=== PATIENT | female | born 1965 | race Caucasian/White ===

== ENCOUNTER 2024-09-27 05:59 | Day surgery (SDC) | payer OTHER, SELFPAY ==
[2024-09-22 14:09] VITALS: BMI 34.8
--- NOTE | 2024-09-24 07:17 | W.CON.GYNONC ---
Chief Complaint
-
endometrial cancer
History of Present Illness
59�year�old��woman�referred�to�us�by�Dr.�Calvin.�Newly�diagnosis�of�endometrial�cancer.�She�had�presented�with postmenopausal�bleeding.,�spotting�noted�back�in�2020,�no�workup�done,�one�week�of�menstrual�like�bleeding�in�Nov�2024.�
Pap�smear�dated�Luna�24,�2024�shows�atypical�squamous�cells�of�undetermined�significance,�high�risk�HPV�negative Ultrasound�of�pelvis�Luna�13�reveals�uterus�7.6�x�3.6�x�4.9�cm,�endometrial�echo�complex�is�thick�at�10�mm,�right�ovary�is
not�visualized,�left�ovary�is�1.7�cm.�In�addition�there�is�heterogeneous�echotexture�noted�and�a�distended�endocervical�canal�about�7 mm�in�thickness
Endometrial�biopsy�dated�Luna�24�shows�fragments�of�grade�1�endometrioid�adenocarcinoma,�mismatch�repair�proteins are�expressed.wild�type�p53.�
Past�medical�history�significant�for�allergic�rhinitis,�anxiety,�arthritis,�chronic�kidney�disease,�hypertension,�Lyme�disease�obesity otitis�media�prediabetes,�thyroid�nodule
Past�surgical�history�arthroscopy�of�knee,�C�section,�cholecystectomy,�tonsillectomy�and�tooth�extraction Family�history�significant�for�mother�with�cardiac�disease�including�atrial�fibrillation,�father�with�hypertension�hyperlipidemia�and
glaucoma,�maternal�grandmother�with�breast�cancer
Medications�include�Mucinex,�Cozaar,�Antivert,�Zoloft,�Desyrel
All:�Cefprozil,�Fluoxetine
Social�History Patient�denies�ever�using�tobacco. Social�use�of�alcohol. Denies�any�illicit�drug�use. Patient�has�not�had�any�occupational�exposure. Mother:�Atrial�Fibrillation,�Hypertension,�Heart�disease,�vision�loss,�Anxiety�disorder
Father:�Kidney�disorder,�Glaucoma,�hypertension,�hyperlipidemia,�vision�loss,�Colon�polyps Brother:�Allergies Maternal�Grand�mother:�Depression,�stroke,�Heart�disease,�breast�cancer,� Son:�auto�immune�disease Maternal�Aunt:�Thrombosis
Family:�Heart�attack,�Breast�cancer,�lungs�cancer�
Marital�Status:�Patient�is�
Medical History
Allergies
Allergies reflect when allergies were last updated in [employer].
No Known Allergies Allergy (Unverified 09/23/24 13:07)
Physical Exam
Physical Exam
External�normal�labia,�urethra,�anus.� Vagina:�Normal�mucosa.� Cervix:�normal�appearance,�no�discharge.� Uterus:�normal�size.� Adnexa:�No�pelvic�mass.� RVE:�no�masses�or�nodularity
General:�Well�developed,�well�nourished�patient.�In�no�acute�distress.
Neck:�No�thyromegaly.�No�cervical�lymphadenopathy.
Lungs:�Clear�to�auscultation.�Good�air�movement�bilaterally.
Cardiac:�Regular�rate.�Regular�rhythm.�No�murmurs�appreciated.
Right�Breast:�No�masses�or�dimpling.�No�nipple�discharge. Left�Breast:�No�masses�or�dimpling.�No�nipple�discharge. Abdomen:�Abdomen�is�soft.�Non�tender�to�palpation.�Non�distended.
Extremities:�No�edema.
Hematologic/Lymphatic:�No�palpable�lymphadenopathy.
Musculoskeletal:�Normal�range�of�motion.�Strength�and�Tone�are�normal.
Skin:Non�jaundiced.�No�petechia.�No�purpura.
Neurologic:�Speech�is�fluent.�Normal�gait�and�station.�Cranial�nerves�intact.
Impression / Plan
-
this�patient�has�a�new�diagnosis�of�grade�1�endometrioid�adenocarcinoma,�her�clinical�examination�appears�to�be�essentially normal.�Risk�factors�and�her�includes�obesity�and�hypertension.�We�discussed�the�general�presentation�of�this�disease�and
management.�I�am�recommending�labs�and�CT�scan�for�initial�investigation,�she�needs�primary�care�physician�to�provide�medical
clearance�and�EKG.�My�recommendation�for�treatment�is�robotic�assisted�total�laparoscopic�hysterectomy�bilateral�salpingooophorectomy�and�sentinel�lymph�node�mapping�and�identification�and�excision.�Risks�of�surgery�including�infection�bleeding�injur
y to�adjacent�organs�DVT�pulmonary�embolism�and�cardiovascular�complications�and�need�for�additional�treatments�were�discussed
and�reviewed.�She�understands�that�she�will�meet�with�me�2�weeks�after�surgery�to�discuss�final�pathology�and�risk�factors�for
recurrence�in�order�to�identify�best�plan�for�adjuvant�treatment.�We�also�discussed�lifestyle�modifications�that�may�lead�to�lesser chance�of�cardiovascular�disease�as�well�as�recurrence�of�endometrial�cancer.
[2024-09-27] VITALS (15 sets, daily range): BP systolic 96–163; BP diastolic 49–86; BMI 34.8
[2024-09-27] MEDS: HEPARIN 5000 UNITS SC (06:56)
[2024-09-27] MEDS: NORMOSOL-R/PLASMALYTE-A 1000 IV (06:57)
[2024-09-27] MEDS: LYRICA 150 MG PO (07:00)
[2024-09-27] MEDS: NEURONTIN 300 MG PO (07:01)
[2024-09-27] MEDS: CELEBREX 200 MG PO (07:01)
[2024-09-27] MEDS: TRANSDERM-SCOP 1 PATCH TRANSDERM (07:09)
--- NOTE | 2024-09-27 09:41 | OR.RPT ---
Operative Report
Operative Report
Date of procedure: September 27, 2024
Preoperative diagnosis: Grade 1 endometrioid adenocarcinoma of uterus
Postoperative diagnosis: Same plus extensive pelvic adhesions
Procedure:
Robotic assisted total laparoscopic hysterectomy, bilateral salpingo-oophorectomy, omental biopsy, extensive lysis of adhesions 25287
Injection of cervix, bilateral, with ICG dye for mapping and identification of sentinel lymph nodes 41800-80
Robotic assisted laparoscopic bilateral pelvic sentinel lymphadenectomy 50906-82
TAP Block
Surgeon: Geovanny Mata
Assist: SUKUMAR Beth
Anesthesia: General Endotracheal intubation
Complications: None
Estimated blood loss: 100 cc
Specimens: Uterus and cervix with bilateral tubes and ovaries, right and left external iliac sentinel lymph nodes, right obturator fossa sentinel lymph node, pelvic washings, omental biopsy
Procedure in detail: This patient was taken to the operating room for definitive management of endometrial cancer. Upon arrival to the operating room, she was placed in supine position. General anesthesia was administered, she was intubated
without any difficulty. Appropriate IVs were placed, bilateral arms were wrapped in foam and placed along the patient's side and protected across all joints. She was placed in dorsal lithotomy position using yellowfin stirrups. Patient was
prepped on the abdomen perineum and vagina. She was draped. Timeout procedure was carried out. She received antibiotics with combination of Ancef and Flagyl and had already received heparin subcutaneous injection for prophylaxis. Douglass catheter
was inserted under sterile condition for drainage of the bladder. Cervix was examined and identified and grasped with single-tooth tenaculum on the anterior lip. Following this the cervix was injected with ICG dye total 5 cc injected at 5 mm and
10 mm deep stations bilaterally at 3 and 9:00 positions. The cervical canal was gradually dilated, the uterus sounded to about 8 cm, jewelry engraver uterine manipulator was placed in the uterus with 3.0 BEVERLEY ring, vaginal cuff occluder was insufflated.
Attention was turned abdominally, Veress needle was inserted just below the left subcostal margin and insufflation with CO2 gas was accomplished up to pressure of 15 mmHg. 8 mm robotic port was inserted 25 cm cephalad to symphysis pubis along the
midline, under direct visualization with the camera 2 additional 8 mm robotic ports were placed right and left upper quadrants and right and left lateral abdomen.
Inspection of the abdomen reveals bilateral diaphragms to be within normal limits, right and left diaphragms and paracolic gutters are normal right and left lobes of the liver are within normal limits spleen stomach omentum are unremarkable. The
uterus is only partially seen but posterior cul-de-sac is without any nodularity, there is a portion of omentum with extensive adhesions to anterior cul-de-sac as well as left pelvis and left adnexa. The visualized portions of the bowel appeared to
be within normal limits. No obvious extrauterine disease was noted.
Washings were collected in the posterior cul-de-sac and submitted to pathology. Tap block was performed with combination of ropivacaine and Decadron injected 2 fingerbreadths below each subcostal margins just above the peritoneum but below the
muscle. In addition injections were made on the lateral and mid aspects of the abdomen as well. Patient was placed in 28 degree Trendelenburg, robotic system was docked. Using monopolar scissors adhesions were taken down along the left pelvis,
anterior cul-de-sac and left adnexa, this portion of the omentum was mobilized free and then adhesions between the colon and left pelvis were freed up, right and left fallopian tubes and ovaries were visualized. Left IP ligament was isolated. Both
round ligaments were sealed and divided anterior and posterior leaves of the broad ligament were dissected open, paravesical and pararectal spaces were developed. Both IP ligaments were sealed 3 times and divided. Tubes and ovaries were left
attached to the uterus. We used the near infrared system to visualize and track the distribution of dye and lymphatic channels along the right and left pelvic sidewall. On the left side the dye travel to a lymph node which was at the mid external
iliac level between external iliac artery and vein. This lymph node was removed and submitted to pathology. On the right side the dye traveled initially to what appeared to be obturator fossa small lymph node this lymph node was removed and
submitted and then subsequently to travel to proximal the medial side of external iliac artery and this was removed and submitted to pathology. The course of ureter was visualized throughout the course of this dissection and there was no injury to
blood vessels nerves or ureter. Next bladder flap was sharply developed and advanced below the cervicovaginal junction. Extensive adhesions were present here secondary to prior . Uterine vessels were skeletonized sealed and divided.
Circumferential incision was made over the BEVERLEY ring until the uterus was completely detached. Uterus and cervix as well as tubes and ovaries were removed through the vagina and submitted to pathology. The dependent and adherent portion of the
omentum was also sealed and divided and removed from the remainder of the omentum. This portion of the omentum was then proximity of left adnexa and the uterus and decision was made to submit this also to pathology in order to ensure there is no
extension of the tumor to this region. All operative sites were examined and there was no obvious evidence of bleeding. The vaginal cuff was closed with 0 Vicryl suture ligature in a [id number] fashion at both apices. V-Loc suture was used
to close the vaginal cuff in 2 layers starting from right to the left side and back to the right side. I then backfilled the bladder with approximately 400 cc of saline, I noted that there was a small bleeding vessels on the left aspect of the dome
of the bladder this was controlled with bipolar cautery. There was also a muscular defect in the mid portion of the dome of the bladder this was repaired with a [id number] suture of 3-0 Vicryl. Good closure was performed and there was no
additional areas of concern. I went ahead and proceeded with undocking the robotic system and closing all laparoscopic ports after removal of all instruments with 4-0 Monocryl in a subcuticular fashion. Douglass catheter was removed. The vagina was
examined, there was no evidence of lacerations or bleeding in the vagina. Patient was awakened extubated and returned back to recovery room stable awake and extubated condition. Counts of laps instruments and needle was correct x 2. I was present
and scrubbed for entire procedure as dictated above.
Disposition: To PACU, stable awake and extubated
[2024-09-27] MEDS: ZOFRAN 4 MG IV (10:21)
[2024-09-27] MEDS: DILAUDID 0.25 MG IV (11:23)
--- NOTE | 2024-09-27 12:05 | SUR.PHASEI ---
patient sleepy in pacu - c/o nausea - medicated with zofran, anxious though sleepy. Loose cough initially - cleared, sats marginal. Encourage deep breathing and using IS. C/o of urethral pain - no abdominal pain. treated with ice pack with
patient's history of PONV - attempt to limit narcotics. Attempted to void on bedpan - unsuccessful. Dr Mata visits. At patient's request - medicated with dilaudid for urethral pain - wave of nausea - passed. Slept soundly - sats improved.
discharged to [facility] with controlled discomfort and no nausea.
[2024-09-27] MEDS: TYLENOL 650 MG PO (15:13)
== END 2024-09-27 15:52 | disposition home or self-care (01) ==
LOC: SDS 05:59
PROVIDERS: ATTENDING PHYSICIAN Obstetrics & Gynecology Gynecologic Oncology; FAMILY PHYSICIAN Family Medicine
DX: C54.1 Malignant neoplasm of endometrium (principal); N73.6 Female pelvic peritoneal adhesions (postinfective); Z17.1 Estrogen receptor negative status [ER-]
CPT/HCPCS: 38571; 58571; 38570; 38900; 88307; 88309; 36415; 86850; 86900; 86901; 88112; 88342; 88360; 93005